=== PATIENT | female | born 1985 | race Caucasian/White ===

== ENCOUNTER 2021-01-09 21:35 | Observation (INO) | payer MEDICAID ==
[~2021-01-09] VITALS: Ht 160 cm; Wt 78.0 kg
[2021-01-09 21:41] VITALS: BP 104/69
[2021-01-09 22:14] LABS: APPEARANCE,URINE Cloudy (CLEAR); BILIRUBIN,URINE Negative (NEGATIVE); COLOR,URINE Yellow (YELLOW); GLUCOSE, URINE (UA) Negative (NEGATIVE); KETONES,URINE Negative (NEGATIVE); LEUKOCYTE ESTERASE ,URINE Large (NEGATIVE); NITRATE,URINE Negative (NEGATIVE); OCCULT BLOOD,URINE Large (NEGATIVE); PH,URINE 6.5 (5.0-8.0); PROTEIN,URINE Trace mg/dL (NEGATIVE); UROBILINOGEN,URINE 0.2 mg/dL (0.2-1.0)
[2021-01-09] MEDS ORDERED: CLINDAMYCIN IVPB 900MG/50ML 50 ML IV PRN (22:30)
[2021-01-09] MEDS ORDERED: LACTATED RINGERS 1000ML 1,000 ML IV SCH (22:30)
[2021-01-09] MEDS ORDERED: CITRIC ACID/SODIUM CITRATE 30 ML UDCUP PO PRN (22:30)
[2021-01-09] MEDS ORDERED: GENTAMICIN SULFATE 240 MG in 0.9%NACL 100ML 100 ML IV PRN (22:30)
[2021-01-09 22:32] LABS: HEMATOCRIT 31.9 % (36-48); MEAN CORPUSCULAR HEMOGLOBIN 31.1 pg (27.0-33.0); MEAN CORPUSCULAR HGB CONC 33.9 g/dL (32.0-36.0); MEAN CORPUSCULAR VOLUME 91.9 fL (79-99); RED BLOOD CELL COUNT(AUTO) 3.47 MIL/uL (4.00-5.50); RED CELL DISTRIBUTION WIDTH 12.1 % (11.0-15.5); WHITE BLOOD COUNT (AUTO) 14.3 K/uL (4.8-10.8)
[2021-01-09 22:49] LABS: BACTERIA,URINE Moderate /HPF (None Seen); RBC,URINE 0-1 /HPF (0-1)
[2021-01-09 22:50] LABS: FINE GRANULAR CASTS,URINE 0-2 /LPF (None Seen)
[2021-01-09] MEDS: LACTATED RINGERS 1000ML IV PRN (23:04)
[2021-01-09 23:42] LABS: AMPHET/METH SCREEN,URINE NEGATIVE (NEGATIVE); BARBITURATE SCREEN, URINE NEGATIVE (NEGATIVE); BENZODIAZEPINES SCREEN,URINE NEGATIVE (NEGATIVE); CANNABINOID SCREEN,URINE NEGATIVE (NEGATIVE); COCAINE SCREEN,URINE NEGATIVE (NEGATIVE); OPIATE SCREEN,URINE NEGATIVE (NEGATIVE); PHENCYCLIDINE SCREEN,URINE NEGATIVE (NEGATIVE)
[2021-01-10 04:46] LABS: RAPID PLASMA REAGIN NONREACTIVE (NONREACTIVE)
[2021-01-10] MEDS: LACTATED RINGERS 1000ML IV PRN (07:45)
[2021-01-11 07:17] LABS: HEPATITIS Bs ANTIGEN SCREEN P Negative (Negative)
== END 2021-01-10 10:32 | disposition home or self-care (01) ==
LOC: EDH 21:35 → INTOOBSV 21:36 → LDH 21:36 → OBSVTOIN 21:36
PROVIDERS: ADMIT Obstetrics & Gynecology; ATTEND Obstetrics & Gynecology
DX: O47.03 False labor before 37 completed weeks of gestation, third trimester (principal); O26.853 Spotting complicating pregnancy, third trimester; O34.219 Maternal care for unspecified type scar from previous cesarean delivery; O34.33 Maternal care for cervical incompetence, third trimester; Z3A.36 36 weeks gestation of pregnancy
CPT/HCPCS: 36415; 59025; 76805; 80305; 81001; 85027; 86592; 86701; 86850; 86900; 86901; 87088; 87340; 87390; 96360; 96361 ×3; G0378 ×13; J7120 ×2